=== PATIENT | male | born 1945 | race Caucasian/White ===

== ENCOUNTER → 2018-11-04 | Day surgery (SDC) | payer MEDICARE, OTHER ==
[~2018-11-04] MED LIST: ACTEMRA; ALLOPURINOL300 MG PO; BALANCED SALT SOLN (OPTH) 15 ML BTL IO ONE; BISOPROLOL-HCT1 EAC1 PO; CARDIZEM120 MG PO; CARTIA XT120 MG PO; CITRACAL + D E1 EACH PO; CORDARONE200 MG PO; COUMADIN3 MG PO; DULCOLAX5 MG PO; EMBRIL SC; FENOFIBRATE160 MG PO; FOLIC ACID1 MG PO; GABAPENTIN100 MG PO; GLUCOPHAGE500 MG PO; HYDRALAZINE HCL 20 MG/ML VIAL ONE; HYDROCODON-ACE1 EACH PO; INDERAL LA80 MG PO; LABETALOL HCL 5 MG/ML 20ML VIAL ONE; LANOXIN125 MCG PO; LANTUS100 UNIT/1 SQ; LIDOCAINE 2% /EPINEPHRINE 20 ML SDV INJ ONE; LIDOCAINE HCL 2% LOCAL INJ 5 ML SDV VIAL INJ ONE; LISINOPRIL20 MG PO; METFORMIN HCL500 MG PO; METHOTREXATE2.5 MG PO; MIDAZOLAM HCL 2 MG/2 ML VIAL ONE; NEOMYCIN/POLYMYXIN/DEX (OPTH) 3.5 GM TUBE ONE; NORCO 5-325 TA1 EACH PO; OXAPROZIN600 MG PO; PREDNISONE5 MG PO; PROAIR HFA INH8.5 GM INH; PROMETHAZI6.25 MG/5; PROPOFOL IV EMULSION 10 MG/ML 20 ML VIAL ONE; ROPINIROLE HCL0.5 MG PO; SOMA350 MG PO; SULFASALAZINE500 MG PO; SYMBICORT 16010.2 GM INH; TIZANIDINE HCL4 M1 PO; TRADJENTA5 MG PO; TRAZODONE HCL50 MG PO; XARELTO20 MG PO; ZOLPIDEM TARTRA10 MG PO
--- OUTSIDE RECORDS SUMMARY | 2018-11-04 13:59 | XMS REPORT ---
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 Allergies, Adverse Reactions, Alerts Allergy Name Allergy Type Status Severity Reaction(s) Onset Date Inactive Date Treating Clinician Comments iodine DA Active [place] 2016-05-02 00:00:00 ibandronate sodium DA Active [place] 2016-05-02 00:00:00 tocilizumab DA Active [place] 2016-05-02 00:00:00 Medications This patient has no known medications. Results Test Description Test Time Test Comments Text Results Atomic Results Result Comments PROTHROMBIN TIME 2018-09-24 10:45:00 PROTHROMBIN TIME PATIENT (test code=PTP) 23.5 seconds 9.0-14.0 INTERNATIONAL NORMAL RATIO (test code=INR) 2.0 0.8-1.2 The therapeutic range for oral anticoagulant therapy formost indications is an international normalized ratio (INR)of between 2.0 and 3.0. The recommended therapeutic INRrange for various clinical situations is listed below: Clinical Situation INR range Pulmonary e mbolism treatment (2.0-3.0)Venous thrombosis treatmentVenous thrombosis prophylaxis (high risk surgery)Prevention of systemic embolism from: Acute myocardial infarction Valvular heart disease Atrial fibrillation Mechanical prosthetic heart valves (2.5-3.5) PROTHROMBIN [id number] 12:25:00* Test Item Value Reference Range Comments PROTHROMBIN TIME PATIENT (test code=PTP) 24.5 seconds 9.0-14.0 INTERNATIONAL NORMAL RATIO (test code=INR) 2.1 0.8-1.2 The therapeutic range for oral anticoagulant therapy formost indications is an international normalized ratio (INR)of between 2.0 and 3.0. The recommended therapeutic INRrange for various clinical situations is listed below: Clinical Situation INR range Pulmonary e mbolism treatment (2.0-3.0)Venous thrombosis treatmentVenous thrombosis prophylaxis (high risk surgery)Prevention of systemic embolism from: Acute myocardial infarction Valvular heart disease Atrial fibrillation Mechanical prosthetic heart valves (2.5-3.5) PROTHROMBIN [id number] 13:43:00* Test Item Value Reference Range Comments PROTHROMBIN TIME PATIENT (test code=PTP) 26.8 seconds 9.0-14.0 INTERNATIONAL NORMAL RATIO (test code=INR) 2.2 0.8-1.2 The therapeutic range for oral anticoagulant therapy formost indications is an international normalized ratio (INR)of between 2.0 and 3.0. The recommended therapeutic INRrange for various clinical situations is listed below: Clinical Situation INR range Pulmonary e mbolism treatment (2.0-3.0)Venous thrombosis treatmentVenous thrombosis prophylaxis (high risk surgery)Prevention of systemic embolism from: Acute myocardial infarction Valvular heart disease Atrial fibrillation Mechanical prosthetic heart valves (2.5-3.5) PROTHROMBIN [id number] 13:02:00* Test Item Value Reference Range Comments PROTHROMBIN TIME PATIENT (test code=PTP) 22.7 seconds 9.0-14.0 INTERNATIONAL NORMAL RATIO (test code=INR) 1.9 0.8-1.2 The therapeutic range for oral anticoagulant therapy formost indications is an international normalized ratio (INR)of between 2.0 and 3.0. The recommended therapeutic INRrange for various clinical situations is listed below: Clinical Situation INR range Pulmonary e mbolism treatment (2.0-3.0)Venous thrombosis treatmentVenous thrombosis prophylaxis (high risk surgery)Prevention of systemic embolism from: Acute myocardial infarction Valvular heart disease Atrial fibrillation Mechanical prosthetic heart valves (2.5-3.5)
[2018-11-04 15:48] LABS: PROTHROMBIN TIME 13.7 seconds (11.9-14.5)
[2018-11-04 15:49] LABS: PARTIAL THROMBOPLASTIN TIME 29.7 seconds (23.8-35.5)
[2018-11-04 18:25] VITALS: BP 152/94
== END | disposition home or self-care (01) ==
LOC: OR 13:56
PROVIDERS: ATTEND Ophthalmology
DX: H02.834 Dermatochalasis of left upper eyelid (principal); H02.831 Dermatochalasis of right upper eyelid; M06.9 Rheumatoid arthritis, unspecified; G47.33 Obstructive sleep apnea (adult) (pediatric); I48.91 Unspecified atrial fibrillation; I11.0 Hypertensive heart disease with heart failure; I50.9 Heart failure, unspecified; E11.9 Type 2 diabetes mellitus without complications; N20.0 Calculus of kidney; I45.10 Unspecified right bundle-branch block; Z91.041 Radiographic dye allergy status
CPT/HCPCS: 15823; 36415; 82948; 85610; 85730; J0360; J2001 ×2; J2250; J2704; J3490